=== PATIENT | female | born 1935 | race Caucasian/White ===

== ENCOUNTER 2022-02-03 12:32 | Inpatient (IN) | payer MEDICARE ==
[~2022-02-03] VITALS: Ht 162.6 cm; Wt 68.0 kg
[~2022-02-03 12:32] MED LIST: NORCO 5-325 TA1 EACH PO
[2022-02-03 13:10] LABS: HEMOGLOBIN 12.4 gm/dl (12.3-15.3); RED BLOOD COUNT 4.33 M/UL (4.00-5.10); WHITE BLOOD COUNT 8.8 K/UL (4.5-11.0)
[2022-02-03 13:44] LABS: BUN/CREATININE RATIO 30 (0-10)
[2022-02-04 04:08] LABS: HEMOGLOBIN 11.4 gm/dl (12.3-15.3); WHITE BLOOD COUNT 8.1 K/UL (4.5-11.0)
[2022-02-04] MEDS ORDERED: BUMETANIDE1 MG PO (10:35)
[2022-02-04] MEDS ORDERED: ZOFRAN 4 MG TAB4 MG PO (10:37)
[2022-02-04] MEDS ORDERED: K-TAB ER10 MEQ PO (10:37)
[2022-02-04] MEDS ORDERED: SYNTHROID50 MCG PO (10:38)
[2022-02-04] MEDS ORDERED: FERREX 150150 MG PO (10:38)
[2022-02-04] MEDS ORDERED: LEXAPRO10 MG PO (10:39)
[2022-02-04] MEDS ORDERED: VERAPAMIL ER180 M1 PO (10:39)
[2022-02-04] MEDS ORDERED: METOPROLOL SUCC25 MG PO (10:40)
[2022-02-04] MEDS ORDERED: REPATHA SY140 MG/1 M SQ (10:41)
[2022-02-04] MEDS ORDERED: RANEXA500 MG PO (10:41)
[2022-02-04] MEDS ORDERED: XARELTO15 MG PO (10:42)
[2022-02-04] MEDS ORDERED: MELATONIN10 MG PO (10:42)
[2022-02-04] MEDS ORDERED: ADULT LOW DOSE81 MG PO (10:43)
[2022-02-04] MEDS ORDERED: OXYCODONE-ACET1 EACH PO (10:44)
[2022-02-04] MEDS ORDERED: FENTANYL1 EAC1 TD (10:45)
[2022-02-04] MEDS ORDERED: METOPROLOL SUCC50 MG PO (14:34)
[2022-02-04] MEDS ORDERED: DILTIAZEM 24HR240 M1 PO (14:34)
== END 2022-02-04 16:56 | disposition home or self-care (01) | DRG 292 ==
LOC: ER1 12:32 → CDU 18:11 → M/S 19:01
PROVIDERS: ADMIT Internal Medicine
DX: I13.0 Hypertensive heart and chronic kidney disease with heart failure and stage 1 through stage 4 chronic kidney disease, or unspecified chronic kidney disease (principal); I48.21 Permanent atrial fibrillation; J98.11 Atelectasis; J90 Pleural effusion, not elsewhere classified; C78.7 Secondary malignant neoplasm of liver and intrahepatic bile duct; I50.9 Heart failure, unspecified; F03.90 Unspecified dementia, unspecified severity, without behavioral disturbance, psychotic disturbance, mood disturbance, and anxiety; E03.9 Hypothyroidism, unspecified; Z96.651 Presence of right artificial knee joint; F41.9 Anxiety disorder, unspecified; Z85.038 Personal history of other malignant neoplasm of large intestine; I25.2 Old myocardial infarction; Z95.5 Presence of coronary angioplasty implant and graft; Z79.82 Long term (current) use of aspirin; Z79.899 Other long term (current) drug therapy
CPT/HCPCS: ECHO; 36415; 71045; 80048; 80053; 81001; 82550; 82553; 84439; 84443; 84484; 85025; 93005; 93306; 96374; 96375; 99285; J1940

== ENCOUNTER 2022-05-01 16:53 | Inpatient (IN) | payer MEDICARE ==
[~2022-05-01] VITALS: Ht 157.5 cm; Wt 64.1 kg
[~2022-05-01 16:53] MED LIST changes: +ADULT LOW DOSE81 MG PO; +BUMETANIDE1 MG PO; +DILTIAZEM 24HR240 M1 PO; +FENTANYL1 EAC1 TD; +FERREX 150150 MG PO; +K-TAB ER10 MEQ PO; +LEXAPRO10 MG PO; +MELATONIN10 MG PO; +METOPROLOL SUCC25 MG PO; +METOPROLOL SUCC50 MG PO; +OXYCODONE-ACET1 EACH PO; +RANEXA500 MG PO; +REPATHA SY140 MG/1 M SQ; +SYNTHROID50 MCG PO; +VERAPAMIL ER180 M1 PO; +XARELTO15 MG PO; +ZOFRAN 4 MG TAB4 MG PO
[2022-05-01 17:35] LABS: HEMOGLOBIN 15.8 gm/dl (12.3-15.3); RED BLOOD COUNT 5.32 M/UL (4.00-5.10); WHITE BLOOD COUNT 9.6 K/UL (4.5-11.0)
[2022-05-02 03:49] LABS: WHITE BLOOD COUNT 9.2 K/UL (4.5-11.0)
[2022-05-02 03:54] LABS: HEMOGLOBIN 13.4 gm/dl (12.3-15.3); RED BLOOD COUNT 4.61 M/UL (4.00-5.10)
[2022-05-02] MEDS ORDERED: METOPROLOL TART25 MG PO (15:42)
[2022-05-02] MEDS ORDERED: VERAPAMIL ER180 M1 PO (15:44)
[2022-05-03 03:41] LABS: CANDIDA ALBICANS Not Detected (Negative); CANDIDA KRUSEI Not Detected (Negative); CANDIDA TROPICALIS Not Detected (Negative); ESCHERICHIA COLI Not Detected (Negative); HAEMOPHILUS INFLUENZAE Not Detected (Negative); KLEBSIELLA OXYTOCA Not Detected (Negative); KLEBSIELLA PNEUMONIAE Not Detected (Negative); KPC-CARBAPENEM-RESISTANCE GENE Not Detected (Negative); PROTEUS Not Detected (Negative); PSEUDOMONAS AERUGINOSA Not Detected (Negative); SERRATIA MARCESANS Not Detected (Negative); STAPHYLOCOCCUS AUREUS Not Detected (Negative); STREP AGALACTIAE (GROUP B) Not Detected (Negative); STREP PYOGENES (GROUP A) Not Detected (Negative); STREPTOCOCCUS Not Detected (Negative); vanA/B (VANCOMYCIN RESIST GENE Not Detected (Negative)
[2022-05-03 03:43] LABS: STAPHYLOCOCCUS DETECTED (Negative)
[2022-05-03 04:55] LABS: HEMOGLOBIN 11.7 gm/dl (12.3-15.3); WHITE BLOOD COUNT 8.1 K/UL (4.5-11.0)
[2022-05-03 04:56] LABS: RED BLOOD COUNT 4.03 M/UL (4.00-5.10)
[2022-05-04 02:02] LABS: HEMOGLOBIN 12.7 gm/dl (12.3-15.3); RED BLOOD COUNT 4.39 M/UL (4.00-5.10)
[2022-05-04 02:04] LABS: WHITE BLOOD COUNT 11.6 K/UL (4.5-11.0)
--- NOTE | 2022-05-05 07:24 | NUR ---
PT FAMILY REFUSING CT SCAN AT THIS TIME DUE TO PATIENTS MEDICAL HX. CT DEPARTMENT WILL BE CONTACTED. NURSE TRIED TO NOTIFY PHYSICIAN OF REFUSAL. UNABLE TO REACH PHYSICIAN. WILL CONTINUE TO MONITOR.
--- NOTE | 2022-05-06 01:42 | NUR ---
CONTACTED FAMILY ABOUT ORDER TO START CARDIZEM GTT AND PUSH. FAMILY ASKED PRIOR TO LEAVING [facility] TO BE CALLED FOR ANY NEW ORDERS OR CHANGES. FAMILY WAS OKAY AT THIS TIME TO HAVE CARDIZEM STARTED.
[2022-05-06 03:11] LABS: HEMOGLOBIN 13.6 gm/dl (12.3-15.3); RED BLOOD COUNT 4.67 M/UL (4.00-5.10); WHITE BLOOD COUNT 12.9 K/UL (4.5-11.0)
[2022-05-06] MEDS ORDERED: POLYETHYLENE GL17 GM PO (08:46)
[2022-05-06] MEDS ORDERED: SENNA LAX8.6 MG PO (08:46)
[2022-05-06] MEDS ORDERED: EPIFOAM FOAM10 GM TOP (08:46)
[2022-05-06] MEDS ORDERED: DOCUSATE SODIU100 MG PO (08:46)
[2022-05-06] MEDS ORDERED: BUMETANIDE1 MG PO (08:46)
[2022-05-06] MEDS ORDERED: OMNICEF 300 MG300 MG PO (08:46)
[2022-05-06] MEDS ORDERED: DOXYCYCLINE HY100 MG PO (09:00)
[2022-05-07] MEDS ORDERED: DIGOX125 MCG PO (08:21)
[2022-05-07] MEDS ORDERED: K-TAB ER10 MEQ PO (09:00)
[2022-05-07] MEDS ORDERED: COLACE SOL100 MG/10 PO (09:01)
== END 2022-05-07 09:50 | DRG 871 ==
LOC: ER1 16:53 → PROG CARE 18:40 → CDU 18:40 → PROG CARE 20:42
PROVIDERS: Emergency Medicine; Internal Medicine; Internal Medicine Nephrology; ADMIT Internal Medicine
DX: A41.9 Sepsis, unspecified organism (principal); G92.8 Other toxic encephalopathy; J18.9 Pneumonia, unspecified organism; J96.01 Acute respiratory failure with hypoxia; I50.23 Acute on chronic systolic (congestive) heart failure; C18.9 Malignant neoplasm of colon, unspecified; L03.115 Cellulitis of right lower limb; F11.20 Opioid dependence, uncomplicated; E87.1 Hypo-osmolality and hyponatremia; E87.2 Acidosis; N17.9 Acute kidney failure, unspecified; I13.0 Hypertensive heart and chronic kidney disease with heart failure and stage 1 through stage 4 chronic kidney disease, or unspecified chronic kidney disease; E44.0 Moderate protein-calorie malnutrition; R65.20 Severe sepsis without septic shock; T39.95XA Adverse effect of unspecified nonopioid analgesic, antipyretic and antirheumatic, initial encounter; K64.9 Unspecified hemorrhoids; Z96.653 Presence of artificial knee joint, bilateral; G47.33 Obstructive sleep apnea (adult) (pediatric); E87.6 Hypokalemia; N18.9 Chronic kidney disease, unspecified; F03.90 Unspecified dementia, unspecified severity, without behavioral disturbance, psychotic disturbance, mood disturbance, and anxiety; E03.9 Hypothyroidism, unspecified; L89.312 Pressure ulcer of right buttock, stage 2; I25.10 Atherosclerotic heart disease of native coronary artery without angina pectoris; K59.00 Constipation, unspecified; I27.20 Pulmonary hypertension, unspecified; E83.42 Hypomagnesemia; F32.A Depression, unspecified; E88.09 Other disorders of plasma-protein metabolism, not elsewhere classified; I48.91 Unspecified atrial fibrillation; Z79.01 Long term (current) use of anticoagulants; Z79.82 Long term (current) use of aspirin; Z68.24 Body mass index [BMI] 24.0-24.9, adult
CPT/HCPCS: 36415; 70450; 71045; 72220; 74018; 80048; 80053; 80202; 81001; 82550; 82553; 83605; 83735; 83880; 84132; 84484; 85025; 85027; 85610; 85730; 87040; 87077; 87150; 87186; 93005; 94640; 94660; 94664; 94760; 96374; 96375; 97161; 99285; A6212; J0692; J1160; J1170; J1644; J1885; J1940; J2270; J2543; J3370; J3475; J7030; J7050; J7070; Q9967; U0002